=== PATIENT | female | born 1960 | race Caucasian/White ===

== ENCOUNTER 2024-01-27 09:33 | Emergency (ER) | payer MEDICARE ==
[2024-01-27] MEDS ORDERED: BENADRYL 50 MG/ML ONE (09:41)
[2024-01-27] MEDS ORDERED: solu-CORTEF 250MG ONE (09:41)
[2024-01-27] MEDS ORDERED: Pepcid 20 MG VIAL IV ONE (09:41)
[2024-01-27] MEDS ORDERED: Sodium Chloride 0.9% 1000 ML 1,000 ML ONE (09:42)
[2024-01-27 09:53] VITALS: RESP 20; TEMP 97; O2SAT 95
[2024-01-27] MEDS: Sodium Chloride 0.9% 1000 ML 1,000 ML IV STA (09:53)
[2024-01-27] MEDS: solu-CORTEF 250MG IV ONE (09:54)
[2024-01-27] MEDS: BENADRYL 50 MG/ML IV ONE (09:54)
[2024-01-27] MEDS: Pepcid 20 MG VIAL IV ONE (09:54)
[2024-01-27 10:07] LABS: Absolute Neutrophil Ct (ANC) 7.62 x10^3/uL (1.4-6.9); BASOPHIL % 0.5 % (0.0-0.4); Basophil (Absolute #) 0.06 x10^3/uL (0-0.4); Eosinophil % 3.8 % (0.00-5.0); Eosinophil (Absolute #) 0.47 x10^3/uL (0-0.5); Hematocrit 43.4 % (35-47); Hemoglobin 13.3 g/dL (12.0-16.0); IMMATURE GRAN # 0.07 x10^3u/L (0.00-0.03); IMMATURE GRAN % 0.6 % (0.00-0.4); Lymphocyte (Absolute #) 3.32 x10^3/uL (1.0-4.6); Mean Cell Volume 89.9 fL (78-100); Mean Corpuscular Hemoglobin 27.5 pg (26-32); Mean Corpuscular Hgb Concent. 30.6 g/dL (32-36); Mean Platelet Volume 9.4 fL (7.5-11.0); Monocyte (Absolute #) 0.76 x10^3/uL (0.0-1.3); Monocytes % 6.2 % (0.0-12.0); Neutrophil % 61.9 % (36.0-66.0); Platelet Count 467 x10^3/uL (150-450); Red Blood Count 4.83 x10^6/uL (4.1-5.4); Red Cell Distribution Width 14.7 % (11.5-14.0); White Blood Count 12.3 x10^3/uL (4.0-10.5)
--- NOTE | 2024-01-27 10:19 | ERPHSYRPT ---
- History of Present Illness Time Seen by Provider: 01/27/24 10:13 Source: patient Exam Limitations: no limitations Patient Subjective Stated Complaint: Allergic reaction Triage Nursing Assessment: Patient brought back to ED per w/c and transferred to bed with assist of 1. Patient A+O X3. Patient's skin pink, warm and dry. Patient states she woke up with a sore throat then noticed her tongue was swollen. Patient has swelling underneath tongue. Patient has wheezing Physician History: Patient states she woke up with a sore throat then noticed her tongue was swollen. Patient has swelling underneath tongue. Patient has wheezing No previous history of same. No fever, chills, headache, shortness of breath Timing/Duration: today Severity: moderate Associated Symptoms: denies symptoms Allergies/Adverse Reactions: No Known Drug Allergies Allergy (Verified 01/27/24 09:36) Home Medications: Metoprolol Succinate 50 mg [Toprol Xl 50 MG] 50 mg PO BID 08/30/14 [History] Potassium Chloride Tab* [Klor Con] 10 meq PO DAILY 08/30/14 [History] Bupropion HCl 150 mg Sr [Wellbutrin SR 150 MG] 1 tab PO BID 01/27/24 [History] Diclofenac Sodium 50 mg [Voltaren 50 mg] 100 mg PO DAILY 01/27/24 [History] Escitalopram Oxalate [Lexapro] 20 mg PO DAILY 01/27/24 [History] Lisinopril/Hydrochlorothiazide [Lisinopril-Hctz 20-12.5 mg Tab] 1 tab PO DAILY 01/27/24 [History] Hx Tetanus, Diphtheria Vaccination/Date Given: Yes (UNKNOWN) Hx Influenza Vaccination/Date Given: No Hx Pneumococcal Vaccination/Date Given: No Immunizations Up to Date: Yes Travel Risk - International Travel Have you traveled outside of the country in past 3 weeks: No - Coronavirus Screening Are you exhibiting any of the following symptoms?: No Close contact with a COVID-19 positive Pt in past 14-21 Days: No - Vaccine Status Have you recieved a Covid-19 vaccination: No - Review of Systems Constitutional: No Fever, No Chills Eyes: No Symptoms Ears, Nose, & Throat: No Symptoms, Throat Swelling, Other (swelling under tongue) Respiratory: Wheezing, No Cough, No Dyspnea Cardiac: No Chest Pain, No Edema, No Syncope Abdominal/Gastrointestinal: No Abdominal Pain, No Nausea, No Vomiting, No Diarrhea Genitourinary Symptoms: No Dysuria Musculoskeletal: No Back Pain, No Neck Pain Skin: No Rash Neurological: No Dizziness, No Focal Weakness, No Sensory Changes Psychological: No Symptoms Endocrine: No Symptoms All Other Systems: Reviewed and Negative - Past Medical History Pertinent Past Medical History: Yes Neurological History: No Pertinent History Cardiac History: Hypertension Musculoskeletal History: Other History: Renal Disease Psycho-Social History: Anxiety, Bipolar, Depression Other Medical History: chronic pain, Acute Renal insufficiency - Past Surgical History Past Surgical History: Yes Female Surgical History: Lumpectomy, Tubal Ligation Other Surgical History: Pt poor historian - Social History Smoking Status: Current every day smoker How long have you smoked: 30 Exposure to second hand smoke: No Drug Use: none Patient Lives Alone: Yes - Nursing Vital Signs Nursing Vital Signs: Initial Vital Signs Temperature 97.0 F 01/27/24 09:38 Pulse Rate 95 H 01/27/24 09:38 Respiratory Rate 20 01/27/24 09:38 Blood Pressure 176/97 01/27/24 09:38 O2 Sat by Pulse Oximetry 95 01/27/24 09:38 Pain Scale Pain Intensity 0 - Physical Exam General Appearance: no apparent distress, alert Eye Exam: PERRL/EOMI, eyes nml inspection Ears, Nose, Throat Exam: normal ENT inspection, TMs normal, pharynx normal, moist mucous membranes, other (swelling under tongue) Neck Exam: normal inspection, non-tender, supple, full range of motion Respiratory Exam: normal breath sounds, lungs clear, wheezing, No respiratory distress Cardiovascular Exam: regular rate/rhythm, normal heart sounds, normal peripheral pulses Gastrointestinal/Abdomen Exam: soft, normal bowel sounds, No tenderness, No mass Back Exam: normal inspection, normal range of motion, No CVA tenderness, No vertebral tenderness Extremity Exam: normal inspection, normal range of motion, pelvis stable Neurologic Exam: alert, oriented x 3, cooperative, normal mood/affect, nml cerebellar function, nml station & gait, sensation nml, No motor deficits Skin Exam: normal color, warm, dry, No rash Lymphatic Exam: No adenopathy SpO2: 95 - Course Nursing assessment & vital signs reviewed: Yes Ordered Tests: Active Orders 24 hr Category Date Time Status CBC W DIFF Stat Lab 01/27/24 10:05 Completed CMP Stat Lab 01/27/24 10:05 Completed Medication Summary Generic Name Dose Route Start Last Admin Trade Name Evette PRN Reason Stop Dose Admin Sodium Chloride 1,000 mls @ 999 mls/hr 01/27/24 09:43 01/27/24 09:53 Sodium Chloride 0.9% 1000 Ml IV 01/27/24 10:43 999 mls/hr .Q1H1M STA Administration Discontinued Medications Generic Name Dose Route Start Last Admin Trade Name Evette PRN Reason Stop Dose Admin Diphenhydramine HCl Confirm 01/27/24 09:41 Diphenhydramine Hcl 50 Mg/Ml Vial Administered 01/27/24 09:42 Dose 50 mg .ROUTE .STK-MED ONE Diphenhydramine HCl 50 mg 01/27/24 09:43 01/27/24 09:54 Diphenhydramine Hcl 50 Mg/Ml Vial IV 01/27/24 09:44 50 mg STAT ONE Administration Famotidine Confirm 01/27/24 09:41 Famotidine 20 Mg/1 Vial Administered 01/27/24 09:42 Dose 40 mg IV .STK-MED ONE Famotidine 40 mg 01/27/24 09:43 01/27/24 09:54 Famotidine 20 Mg/1 Vial IV 01/27/24 09:44 40 mg STAT ONE Administration Hydrocortisone Sodium Succinate Confirm 01/27/24 09:41 Hydrocortisone Sod Succinate 250 Mg/Vial Vial Administered 01/27/24 09:42 Dose 250 mg .ROUTE .STK-MED ONE Hydrocortisone Sodium Succinate 250 mg 01/27/24 09:46 01/27/24 09:54 Hydrocortisone Sod Succinate 250 Mg/Vial Vial IV 01/27/24 09:47 250 mg ONCE ONE Administration Sodium Chloride Confirm 01/27/24 09:42 Sodium Chloride 0.9% 1000 Ml Administered 01/27/24 09:43 Dose 1,000 mls @ ud .ROUTE .STK-MED ONE Lab/Rad Data: Laboratory Result Diagrams 01/27/24 10:05 01/27/24 10:05 Laboratory Results 01/27/24 01/27/24 Range/Units 10:05 10:05 WBC 12.3 H (4.0-10.5) x10^3/uL RBC 4.83 (4.1-5.4) x10^6/uL Hgb 13.3 (12.0-16.0) g/dL Hct 43.4 (35-47) % MCV 89.9 (78-100) fL MCH 27.5 (26-32) pg MCHC 30.6 L (32-36) g/dL RDW 14.7 H (11.5-14.0) % Plt Count 467 H (150-450) x10^3/uL MPV 9.4 (7.5-11.0) fL Gran % 61.9 (36.0-66.0) % Immature Gran % (Auto) 0.6 H (0.00-0.4) % Nucleat RBC Rel Count 0.0 (0.00-0.1) % Eos # (Auto) 0.47 (0-0.5) x10^3/uL Immature Gran # (Auto) 0.07 H (0.00-0.03) x10^3u/L Absolute Lymphs (auto) 3.32 (1.0-4.6) x10^3/uL Absolute Monos (auto) 0.76 (0.0-1.3) x10^3/uL Absolute Nucleated RBC 0.00 (0.00-0.01) x10^3u/L Lymphocytes % 27.0 (24.0-44.0) % Monocytes % 6.2 (0.0-12.0) % Eosinophils % 3.8 (0.00-5.0) % Basophils % 0.5 (0.0-0.4) % Absolute Granulocytes 7.62 H (1.4-6.9) x10^3/uL Basophils # 0.06 (0-0.4) x10^3/uL Sodium 141 (135-145) mmol/L Potassium 4.3 (3.5-5.1) mmol/L Chloride 108 H (98-107) mmol/L Carbon Dioxide 19 L (22-30) mmol/L Anion Gap 19.0 H (5-15) MEQ/L BUN 37 H (7-17) mg/dL Creatinine 0.97 (0.52-1.04) mg/dL Estimated GFR 66.1 ML/MIN Glucose 163 H (74-106) mg/dL Calcium 9.4 (8.4-10.2) mg/dL Total Bilirubin 0.30 (0.2-1.3) mg/dL AST 53 H (14-36) U/L ALT 45 H (0-35) U/L Alkaline Phosphatase 201 H (38-126) U/L Serum Total Protein 8.8 H (6.3-8.2) g/dL Albumin 4.0 (3.5-5.0) g/dL - Progress Progress: improved Progress Note: 01/27/24 10:15 Patient was given 250 mg Solu-Cortef IV, 50 mg Benadryl IV, and 40 mg Pepcid IV. Patient's symptoms almost disappeared within 30 minutes. Swelling under her tongue almost resolved. 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 We have sent an extra test on you so please follow-up with your primary care physician Discharge/Care Plan GAUDENCIOSEEMA SHAYY was seen on 01/27/24 in the Emergency Room. The patient was counseled regarding Diagnosis,Lab results, Imaging studies, need for follow up and when to return to the Emergency Room. Prescriptions given: Discharge Note I have spoken with the patient and/or caregivers. I have explained the patient's condition, diagnosis and treatment plan based on the information available to me at this time. I have answered the patient's and/or caregiver's questions and addressed any concerns. The patient and/or caregivers have as good understanding of the patient's diagnosis, condition and treatment plan as can be expected at this point. The vital signs have been stable. The patient's condition is stable and appropriate for discharge from the emergency department. The patient will pursue further outpatient evaluation with the primary care physician or other designated or consulting physician as outlined in the discharge instructions. The patient and/or caregivers are agreeable to this plan of care and follow-up instructions have been explained in detail. The patient and/or caregivers have received these instruction. The patient/and or caregivers are aware that any significant change in condition or worsening of symptoms should prompt an immediate return to this or the closest emergency department or call 911. SEEMA RATLIFF was seen on 01/27/24 n the Emergency Room. At that time you were treated for an emergent condition, during your visit Laboratory, Radiology and/or other procedures may have been ordered. It is very important that you follow-up with your Primary Care Physician KATHERINE LIRIANO within the next 24-48 hours to review your Emergency Room visit and the final results of testing that was ordered. Some test results such as Urine Cultures, Blood Cultures, and other cultures if ordered will not be finalized for 24-48 hours. If you do not have a Primary Care Provider please call the medical records department at [phone] ext [phone] to obtain a copy of your results or you may sign into our patient portal to obtain these results by visiting us @ [email or web address] and completing the following steps: 1. Click on the Patient Portal link 2. Click the Patient Self Enrollment Link to complete the enrollment form and entering your 3. Once the enrollment form is completed you will receive an email with a temporary ID and password at the email address you provided. 4. Next choose a user name and password. Your user name must be at least 4 characters long and your password must be at least 4 characters long. 5. Choose a security question from the list and provide your answer to the q uestion. If you already have signed into the Health Portal you may access your Health Care Information 12/06 by the following steps: 1. Login to our website @ [email or web address] 2. Enter your original user name and password. FAQS The [facility] Health Portal is an online tool that contains your Lab Results, Radiology Reports, Visit History, Discharge Instructions and Health Summary Lab and Radiology Results will not be available for 72 hours on the portal. The Portal is a secure site, passwords are encryted and URLs are re-written so they cannot be copied and pasted. You and authorized family members are the only ones who can access your Portal. Also there is a timeout feature that protects your information if you leave the Portal page open. If you have technical difficulty please use the Contact Us link on the page this will allow you to submit any questions you have regarding the Portal or you may contact the Medical Record Department at [phone] ext [phone].
[2024-01-27 10:20] LABS: BILIRUBIN,TOTAL 0.3 mg/dL (0.2-1.3); Calcium 9.4 mg/dL (8.4-10.2); Creatinine 1 0.97 mg/dL (0.52-1.04); EST GLOMERULAR FILTRATION RATE 66.1 ML/MIN; Potassium 4.3 mmol/L (3.5-5.1); Total Protein 8.8 g/dL (6.3-8.2)
[2024-01-27 10:53] VITALS: BP 151/93; PULSE 80
== END 2024-01-27 11:10 | disposition home or self-care (01) ==
LOC: ED 09:33
DX: T78.3XXA Angioneurotic edema, initial encounter (principal); R79.89 Other specified abnormal findings of blood chemistry; F17.200 Nicotine dependence, unspecified, uncomplicated; Z86.19 Personal history of other infectious and parasitic diseases
CPT/HCPCS: 36415; 80053; 85025; 96374; 96375; 99283; J1200; J1720

== ENCOUNTER 2024-06-20 11:46 | Emergency (ER) | payer MEDICARE, OTHER ==
[2024-06-20 11:53] VITALS: TEMP 98.1
[2024-06-20 12:53] LABS: Hematocrit 24.3 % (34.1-44.9); Mean Cell Volume 78.1 fL (79.4-94.8); Mean Corpuscular Hemoglobin 22.2 pg (25.6-32.2); Mean Corpuscular Hgb Concent. 28.4 g/dL (32.2-35.5); Mean Platelet Volume 9.2 fL (9.4-12.3); Red Blood Count 3.11 x10^6/uL (3.93-5.22); Red Cell Distribution Width 17.9 % (11.7-14.4)
[2024-06-20] MEDS ORDERED: Zofran 4 MG/2 ML VIAL ONE (12:56)
[2024-06-20] MEDS ORDERED: Sodium Chloride 0.9% 1000 ML 1,000 ML ONE ×3 (12:56→18:30)
[2024-06-20] MEDS ORDERED: PROTONIX 40 MG IV IV ONE (12:56)
[2024-06-20 12:57] LABS: ALBUMIN 2.8 g/dL (3.5-5.0); BILIRUBIN,TOTAL 0.3 mg/dL (0.2-1.3); Calcium 9.6 mg/dL (8.4-10.2); Creatinine 1 1.5 mg/dL (0.52-1.04); EST GLOMERULAR FILTRATION RATE 38.9 ML/MIN; Potassium 4.6 mmol/L (3.5-5.1)
[2024-06-20] MEDS: Zofran 4 MG/2 ML VIAL IV ONE (13:02)
[2024-06-20] MEDS: PROTONIX 40 MG IV IV ONE (13:02)
[2024-06-20] MEDS: Sodium Chloride 0.9% 1000 ML 1,000 ML IV STA (13:02)
[2024-06-20 13:25] LABS: Hemoglobin 6.9 g/dL (11.2-15.7); White Blood Count 29.3 x10^3/uL (3.98-10.04)
[2024-06-20 13:26] LABS: Platelet Count 1124 x10^3/uL (182-369)
[2024-06-20 13:27] LABS: Appearance Turbid (Clear); Bacteria Moderate /HPF (None Seen); Bilirubin Negative (Negative); Blood Moderate (Negative); Epithelial Cells Moderate /HPF (None Seen); Glucose, Urine Negative (Negative); Ketones Trace (Negative); Leukocyte Esterase Small (Negative); Nitrite Negative (Negative); Ph 5.5 (4.6-8.0); Protein,Urine Dip 100 (Negative)
[2024-06-20 13:28] LABS: ADD URINE CULTURE? ORDERED SEPARATELY (NO); Amourphous Crystal Moderate /HPF (None Seen)
--- NOTE | 2024-06-20 13:31 | ERPHSYRPT ---
- History of Present Illness Time Seen by Provider: 06/20/24 12:00 Historian: patient, family Exam Limitations: no limitations Patient Subjective Stated Complaint: Pt brought to ED by ambulance with 8/10 abdominal pain Triage Nursing Assessment: Pt brought to ED by ambulance with complaints of upper abdominal pain. 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 Patient has been having vomiting and diarrhea symptoms since 01/27/2024. What was different today is that she had vomited blood clots. Family member provides independent, additional history as the patient is a poor historian. Patient's family very states that the patient has been having diarrhea off and during the last several months. Patient has never had an upper or lower endoscopy. Patient has no known weight loss. She has epigastric and right lower quadrant abdominal pain at this time. Patient has a history of hypertension, depression, anxiety, bipolar disorder, chronic renal disease and chronic pain issues. Timing/Duration: other (Open present for 3 months) Quality: aching Abdominal Pain Onset Location: epigastric Pain Radiation: RLQ Severity of Pain-Max: moderate Severity of Pain-Current: moderate Modifying Factors: Improves With: vomiting (Blood) Associated Symptoms: diarrhea, vomiting, weakness Previous symptoms: same symptoms as today, no recent treatment Allergies/Adverse Reactions: No Known Drug Allergies Allergy (Verified 06/20/24 12:05) Home Medications: Metoprolol Succinate 50 mg [Toprol Xl 50 MG] 50 mg PO BID 08/30/14 [History] Potassium Chloride Tab* [Klor Con] 10 meq PO DAILY 08/30/14 [History] Bupropion HCl 150 mg Sr [Wellbutrin SR 150 MG] 1 tab PO BID 01/27/24 [History] Diclofenac Sodium 50 mg [Voltaren 50 mg] 100 mg PO DAILY 01/27/24 [History] Escitalopram Oxalate [Lexapro] 20 mg PO DAILY 01/27/24 [History] Hx Tetanus, Diphtheria Vaccination/Date Given: Yes (UNKNOWN) Hx Influenza Vaccination/Date Given: No Hx Pneumococcal Vaccination/Date Given: No Travel Risk - International Travel Have you traveled outside of the country in past 3 weeks: No - Emerging Infectious Disease Are you exhibiting symptoms associated with any current EIDs: No Symptoms: Abdominal Pain, Vomitting - Review of Systems Constitutional: No Symptoms Eyes: No Symptoms Ears, Nose, & Throat: No Symptoms Respiratory: No Symptoms Cardiac: No Symptoms Abdominal/Gastrointestinal: Abdominal Pain, Vomiting, Hematemesis Genitourinary Symptoms: No Symptoms Musculoskeletal: No Symptoms Skin: No Symptoms Neurological: No Symptoms Psychological: No Symptoms Endocrine: No Symptoms Hematologic/Lymphatic: No Symptoms Immunological/Allergic: No Symptoms All Other Systems: Reviewed and Negative - Past Medical History Pertinent Past Medical History: Yes Neurological History: No Pertinent History Cardiac History: Hypertension Musculoskeletal History: Other History: Renal Disease Psycho-Social History: Anxiety, Bipolar, Depression Other Medical History: chronic pain, Acute Renal insufficiency - Past Surgical History Past Surgical History: Yes Female Surgical History: Lumpectomy, Tubal Ligation Other Surgical History: Pt poor historian - Social History Smoking Status: Current every day smoker How long have you smoked: 30 Exposure to second hand smoke: No Drug Use: none Patient Lives Alone: Yes - Social Determinants of Health Will the patient participate in the screening: Yes Do you worry about a steady place to live?: No Do you have any problems with any of the following?: No known problems In the past 12 months,have you had to go without utilities?: No Transportation Issues: No Has anyone in your support network made you feel unsafe?: No Have you or anyone in your house had to go without enough: No - Nursing Vital Signs Nursing Vital Signs: Initial Vital Signs Temperature 98.1 F 06/20/24 11:47 Pulse Rate 96 H 06/20/24 11:47 Respiratory Rate 22 06/20/24 11:47 Blood Pressure 162/139 06/20/24 11:47 O2 Sat by Pulse Oximetry 98 06/20/24 11:47 Pain Scale Pain Intensity 8 - Physical Exam General Appearance: mild distress, alert, anxiety, obese Eye Exam: PERRL/EOMI, pale conjunctivae Ears, Nose, Throat Exam: normal ENT inspection, dry mucous membranes Neck Exam: normal inspection, non-tender, supple, full range of motion Respiratory Exam: normal breath sounds, airway intact, No chest tenderness, No respiratory distress Cardiovascular Exam: regular rate/rhythm, normal heart sounds, normal peripheral pulses Gastrointestinal/Abdomen Exam: soft, normal bowel sounds, tenderness Pelvic Exam: not done Rectal Exam: not done Back Exam: normal inspection, normal range of motion, No CVA tenderness, No vertebral tenderness Extremity Exam: normal inspection, normal range of motion, pelvis stable Neurologic Exam: alert, oriented x 3, cooperative, 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 nml as tested, sensation nml Skin Exam: normal color, warm, dry Lymphatic Exam: No adenopathy SpO2 Interpretation: normal SpO2: 97 O2 Delivery: Room Air - Course Nursing assessment & vital signs reviewed: Yes Ordered Tests: Active Orders 24 hr Category Date Time Status Cath for Specimen-Straight STAT Care 06/20/24 12:46 Active IV Insertion STAT Care 06/20/24 12:46 Active IV Insertion-2nd Peripheral STAT Care 06/20/24 13:33 Active POCT Glucose Check STAT Care 06/20/24 16:15 Active ABDOMEN AND PELVIS W/0 CONTRAS [CT] Stat Exams 06/20/24 12:46 Completed AMYLASE Stat Lab 06/20/24 12:30 Completed BLOOD CULTURE Stat Lab 06/20/24 13:30 Received CBC W DIFF Stat Lab 06/20/24 12:30 Results CMP Stat Lab 06/20/24 12:30 Completed CULTURE,URINE Stat Lab 06/20/24 12:55 Received LIPASE Stat Lab 06/20/24 12:30 Completed Lactic Acid Stat Lab 06/20/24 13:00 Completed Lactic Acid Stat Lab 06/20/24 15:02 Completed Manual Differential NC Stat Lab 06/20/24 12:30 Results POCT GLUCOSE Stat Lab 06/20/24 16:51 Completed Pathologist Review Stat Lab 06/20/24 12:30 Results UA W/RFX UR CULTURE Stat Lab 06/20/24 12:55 Completed Medication Summary Generic Name Dose Route Start Last Admin Trade Name Freq PRN Reason Stop Dose Admin Sodium Chloride 1,000 mls @ 100 mls/hr 06/20/24 15:15 06/20/24 15:04 Sodium Chloride 0.9% 1000 Ml IV 07/20/24 15:14 100 mls/hr .Q10H SHERINE Administration Discontinued Medications Generic Name Dose Route Start Last Admin Trade Name Evette PRN Reason Stop Dose Admin Dextrose 50 ml 06/20/24 16:10 06/20/24 16:11 Dextrose 50%-Water 50 Ml Abboject IV 06/20/24 16:11 50 ml STAT ONE Administration Dextrose Confirm 06/20/24 16:11 Dextrose 50%-Water 50 Ml Abboject Administered 06/20/24 16:12 Dose 50 ml IV .STK-MED ONE Sodium Chloride 1,000 mls @ 999 mls/hr 06/20/24 12:45 06/20/24 14:03 Sodium Chloride 0.9% 1000 Ml IV 06/20/24 13:45 Infused .Q1H1M STA Infusion Sodium Chloride Confirm 06/20/24 12:56 Sodium Chloride 0.9% 1000 Ml Administered 06/20/24 12:57 Dose 1,000 mls @ ud .ROUTE .STK-MED ONE Meropenem 1 gm/ Sodium 100 mls @ 200 mls/hr 06/20/24 13:35 06/20/24 13:47 Chloride IV 06/20/24 14:04 200 mls/hr STAT ONE Administration Lactated Ringer's 1,000 mls @ 999 mls/hr 06/20/24 13:35 06/20/24 14:48 Lactated Ringers IV 06/20/24 14:35 Infused .Q1H1M ONE Infusion Sodium Chloride Confirm 06/20/24 13:44 Sodium Chloride 100ml Mini-Bag Plus Administered 06/20/24 13:45 Dose 100 mls @ ud IV .STK-MED ONE Lactated Ringer's Confirm 06/20/24 13:44 Lactated Ringers Administered 06/20/24 13:45 Dose 1,000 mls @ ud IV .STK-MED ONE Lorazepam 0.5 mg 06/20/24 17:49 Lorazepam 2 Mg/1 Ml 2 Mg Vial IV 06/20/24 17:50 STAT ONE Lorazepam Confirm 06/20/24 17:55 Lorazepam 2 Mg/1 Ml 2 Mg Vial Administered 06/20/24 17:56 Dose 2 mg .ROUTE .STK-MED ONE Meropenem Confirm 06/20/24 13:43 Meropenem 1 Gm Vial Administered 06/20/24 13:44 Dose 1 gm IV .STK-MED ONE Ondansetron HCl 4 mg 06/20/24 12:45 06/20/24 13:02 Ondansetron Hcl 4 Mg/2 Ml Vial IV 06/20/24 12:46 4 mg STAT ONE Administration Ondansetron HCl Confirm 06/20/24 12:56 Ondansetron Hcl 4 Mg/2 Ml Vial Administered 06/20/24 12:57 Dose 4 mg .ROUTE .STK-MED ONE Pantoprazole Sodium 40 mg 06/20/24 12:45 06/20/24 13:02 Pantoprazole 40 Mg Vial IV 06/20/24 12:46 40 mg STAT ONE Administration Pantoprazole Sodium Confirm 06/20/24 12:56 Pantoprazole 40 Mg Vial Administered 06/20/24 12:57 Dose 40 mg IV .STK-MED ONE Lab/Rad Data: Laboratory Result Diagrams 06/20/24 12:30 06/20/24 12:30 Laboratory Results 06/20/24 06/20/24 06/20/24 Range/Units 16:51 15:02 13:30 WBC (3.98-10.04) x10^3/uL RBC (3.93-5.22) x10^6/uL Hgb (11.2-15.7) g/dL Hct (34.1-44.9) % MCV (79.4-94.8) fL MCH (25.6-32.2) pg MCHC (32.2-35.5) g/dL RDW (11.7-14.4) % Plt Count (182-369) x10^3/uL MPV (9.4-12.3) fL Segmented Neutrophils (1.56-6.13) % Band Neutrophils (0.0-2.0) % Lymphocytes (Manual) (24-44) % Monocytes (Manual) (0.0-12.0) % Hypochromia Platelet Estimate (NORMAL) RBC Morphology Polychromasia Anisocytosis Smear Path Review Sodium (135-145) mmol/L Potassium (3.5-5.1) mmol/L Chloride (98-107) mmol/L Carbon Dioxide (22-30) mmol/L Anion Gap (5-15) MEQ/L BUN (7-17) mg/dL Creatinine (0.52-1.04) mg/dL Estimated GFR ML/MIN Glucose (74-106) mg/dL POC Glucometer 118 H (74 to 106) mg/dL Lactic Acid 4.0 H (0.4-2.0) Calcium (8.4-10.2) mg/dL Total Bilirubin (0.2-1.3) mg/dL AST (14-36) U/L ALT (0-35) U/L Alkaline Phosphatase (38-126) U/L Serum Total Protein (6.3-8.2) g/dL Albumin (3.5-5.0) g/dL Amylase (30-110) U/L Lipase (23-300) U/L Urine Color (Yellow) Urine Appearance (Clear) Urine pH (4.6-8.0) Ur Specific Dubois (1.005-1.030) Urine Protein (Negative) Urine Glucose (UA) (Negative) mg/dL Urine Ketones (Negative) Urine Blood (Negative) Urine Nitrite (Negative) Urine Bilirubin (Negative) Urine Urobilinogen (0.2) mg/dL Ur Leukocyte Esterase (Negative) U Hyaline Cast (Auto) (0-2) /LPF Urine Microscopic RBC (0-5) /HPF Urine Microscopic WBC (0-5) /HPF Ur Epithelial Cells (None Seen) /HPF Amorphous Crystals (None Seen) /HPF Urine Bacteria (None Seen) /HPF Urine Culture Reflexed (NO) ABO Group A Rh Factor POSITIVE Antibody Screen NEGATIVE (NEGATIVE) Crossmatch COMPATIBLE (COMPATIBLE) 06/20/24 06/20/24 06/20/24 Range/Units 13:30 13:00 12:55 WBC (3.98-10.04) x10^3/uL RBC (3.93-5.22) x10^6/uL Hgb (11.2-15.7) g/dL Hct (34.1-44.9) % MCV (79.4-94.8) fL MCH (25.6-32.2) pg MCHC (32.2-35.5) g/dL RDW (11.7-14.4) % Plt Count (182-369) x10^3/uL MPV (9.4-12.3) fL Segmented Neutrophils (1.56-6.13) % Band Neutrophils (0.0-2.0) % Lymphocytes (Manual) (24-44) % Monocytes (Manual) (0.0-12.0) % Hypochromia Platelet Estimate (NORMAL) RBC Morphology Polychromasia Anisocytosis Smear Path Review Sodium (135-145) mmol/L Potassium (3.5-5.1) mmol/L Chloride (98-107) mmol/L Carbon Dioxide (22-30) mmol/L Anion Gap (5-15) MEQ/L BUN (7-17) mg/dL Creatinine (0.52-1.04) mg/dL Estimated GFR ML/MIN Glucose (74-106) mg/dL POC Glucometer (74 to 106) mg/dL Lactic Acid 8.4 H (0.4-2.0) Calcium (8.4-10.2) mg/dL Total Bilirubin (0.2-1.3) mg/dL AST (14-36) U/L ALT (0-35) U/L Alkaline Phosphatase (38-126) U/L Serum Total Protein (6.3-8.2) g/dL Albumin (3.5-5.0) g/dL Amylase (30-110) U/L Lipase (23-300) U/L Urine Color Dark Yellow A (Yellow) Urine Appearance Turbid A (Clear) Urine pH 5.5 (4.6-8.0) Ur Specific Dubois 1.020 (1.005-1.030) Urine Protein 100 A (Negative) Urine Glucose (UA) Negative (Negative) mg/dL Urine Ketones Trace A (Negative) Urine Blood Moderate A (Negative) Urine Nitrite Negative (Negative) Urine Bilirubin Negative (Negative) Urine Urobilinogen 1.0 A (0.2) mg/dL Ur Leukocyte Esterase Small A (Negative) U Hyaline Cast (Auto) 11-20 (0-2) /LPF Urine Microscopic RBC 3-5 (0-5) /HPF Urine Microscopic WBC 3-5 (0-5) /HPF Ur Epithelial Cells Moderate A (None Seen) /HPF Amorphous Crystals Moderate A (None Seen) /HPF Urine Bacteria Moderate A (None Seen) /HPF Urine Culture Reflexed ORDERED SEPARATELY (NO) ABO Group Rh Factor Antibody Screen (NEGATIVE) Crossmatch COMPATIBLE (COMPATIBLE) 06/20/24 06/20/24 Range/Units 12:30 12:30 WBC 29.3 H* (3.98-10.04) x10^3/uL RBC 3.11 L (3.93-5.22) x10^6/uL Hgb 6.9 L* (11.2-15.7) g/dL Hct 24.3 L (34.1-44.9) % MCV 78.1 L (79.4-94.8) fL MCH 22.2 L (25.6-32.2) pg MCHC 28.4 L (32.2-35.5) g/dL RDW 17.9 H (11.7-14.4) % Plt Count 1124 H* (182-369) x10^3/uL MPV 9.2 L (9.4-12.3) fL Segmented Neutrophils 88 H (1.56-6.13) % Band Neutrophils 1 (0.0-2.0) % Lymphocytes (Manual) 9 L (24-44) % Monocytes (Manual) 2 (0.0-12.0) % Hypochromia 1+ Platelet Estimate INCREASED (NORMAL) RBC Morphology ABNORMAL Polychromasia 1+ Anisocytosis 2+ Smear Path Review Pending Sodium 136 (135-145) mmol/L Potassium 4.6 (3.5-5.1) mmol/L Chloride 97 L (98-107) mmol/L Carbon Dioxide 24 (22-30) mmol/L Anion Gap 19.0 H (5-15) MEQ/L BUN 36 H (7-17) mg/dL Creatinine 1.50 H (0.52-1.04) mg/dL Estimated GFR 38.9 ML/MIN Glucose 199 H (74-106) mg/dL POC Glucometer (74 to 106) mg/dL Lactic Acid (0.4-2.0) Calcium 9.6 (8.4-10.2) mg/dL Total Bilirubin 0.30 (0.2-1.3) mg/dL AST 45 H (14-36) U/L ALT 36 H (0-35) U/L Alkaline Phosphatase 389 H (38-126) U/L Serum Total Protein 7.0 (6.3-8.2) g/dL Albumin 2.8 L (3.5-5.0) g/dL Amylase 56 (30-110) U/L Lipase 284 (23-300) U/L Urine Color (Yellow) Urine Appearance (Clear) Urine pH (4.6-8.0) Ur Specific Dubois (1.005-1.030) Urine Protein (Negative) Urine Glucose (UA) (Negative) mg/dL Urine Ketones (Negative) Urine Blood (Negative) Urine Nitrite (Negative) Urine Bilirubin (Negative) Urine Urobilinogen (0.2) mg/dL Ur Leukocyte Esterase (Negative) U Hyaline Cast (Auto) (0-2) /LPF Urine Microscopic RBC (0-5) /HPF Urine Microscopic WBC (0-5) /HPF Ur Epithelial Cells (None Seen) /HPF Amorphous Crystals (None Seen) /HPF Urine Bacteria (None Seen) /HPF Urine Culture Reflexed (NO) ABO Group Rh Factor Antibody Screen (NEGATIVE) Crossmatch (COMPATIBLE) - Progress Progress: improved, pain not gone completely, re-examined Progress Note: 06/20/24 13:43 My medical decision making and the assignment of moderate to high complexity of this patient's medical issue today is based on review of the patient's past medical history, review of the patient's medication list, review of patient drug allergy list, history present illness and physical findings on examination. The workup in this patient includes placement of intravenous line, infusion of normal saline solution, infusion of Protonix, infusion of Zofran. We need to hold off on providing this patient narcotics as she is hypotensive. There is been no active bleeding from lungs, stomach or anus at this time. We also ordered CBC, CMP, lactic acid level, urinalysis, amylase and lipase level as well as a CT scan of the abdomen pelvis without contrast. Differential diagnosis includes but is not limited to bowel ischemia, pancreatitis, cholecystitis, appendicitis, bowel obstruction 06/20/24 14:54 I interpreted the patient's laboratory data results. Patient has a significant leukocytosis with a left shift, anemia with a hemoglobin of 6.9 and thrombocytosis with platelet count of 1124. Patient also has an elevated lactic acid level of 8.4. CT scan of the abdomen pelvis without contrast was interpreted by the radiologist and I reviewed the impression. Impression states abnormally distended gallbladder with 4.2 cm gallstone present. There is multiple mid abdominal mesenteric nodes with stranding, favoring mesenteric adenitis. The noncontrasted stomach and bowel loops appear normal and nonobstructed. There is normal appendix. There is no free air and no free fluid. 06/20/24 18:00 We attempted to transfer this patient several different x 2 different facilities. We spoke with Dr. Kam Pardo, our general surgeon on-call at this time. He felt that the patient, given her BMI of 55 would require a much longer upper endoscopy and colonoscopy apparatus. They are available from the general surgery standpoint. However they feel that it is important for the patient to undergo a gastroenterology evaluation. We do not have gastroenterology here at our facility. We contacted [facility] and they do not have gastroenterology services. We contacted [facility] and there are no beds available. We then contacted [facility] in [facility] and there are no beds available. We contacted [facility] and they initially did not call us back. While we were waiting for them to call back we contacted [facility]. Dr. Rico, the hospitalist on did call back and we discussed this patient in detail. The [facility] stated that there were no beds at this time and availability might be 2 to 3 days. We were placed on a wait list. We then put a call into [facility] and awaiting their call back as well. In the interim, [facility] transfer center called and stated that Dr. Leopoldo Rojas will be the excepting emergency room physician in a emergency room to emergency room transfer. The number given to me for nurse transfer report was [phone] extension [phone]. I told the nurses to contact the transfer center and make them aware of the estimated time of arrival this patient to the emergency department. The transfer center from [facility] in [facility] called back. We declined the transfer since the patient has already been accepted to [facility]. Counseled pt/family regarding: lab results, diagnosis, rad results Medical Desision Making - Independent Historian Additional History obtained from: Family - Diagnostic Testing Diagnostic test were ordered, analyzed, and reviewed by me: Yes Radiological Interpretation: Reviewed by me, Teleradiologist Report - Risk of complications The pt has a high risk of morbidity or mortality based on: Decision regarding hospitilization or escalation of hosp level of care - Departure Departure Disposition: Transfer Clinical Impression: Anemia, Hematemesis, Right sided abdominal pain, Leukocytosis, Lactic acidemia, Hypotension, Cholelithiasis Condition: Fair Critical Care Time: Yes Critical Care Time(excluding separately billable procedures): Critical 30-74 mins (50) Referrals: KATHERINE LIRIANO NP [Primary Care Provider] - Follow up/PCP as directed
[2024-06-20] MEDS ORDERED: Merrem IV ONE (13:43)
[2024-06-20] MEDS ORDERED: Lactated Ringers 1,000 ML IV ONE (13:44)
[2024-06-20] MEDS ORDERED: Sodium Chloride 100ML MINI-BAG PLUS 100 ML IV ONE (13:44)
[2024-06-20] MEDS: Merrem 1 GM in Sodium Chloride 100ML MINI-BAG PLUS 100 ML IV ONE (13:47)
[2024-06-20] MEDS: Lactated Ringers 1,000 ML IV ONE (13:47)
--- NOTE | 2024-06-20 14:41 | XRAY ---
Indication: Abdominal pain 3 months. Nausea and vomiting. Contiguous axial images obtained through the abdomen and pelvis without contrast. Comparison: None Lung bases demonstrates minimal scattered fibrosis/scarring and tiny right lung calcified granulomas. Heart not enlarged. Tiny/small right infrahilar calcified nodes. Stomach is distended with food/fluid. Gallbladder abnormally distended distended with 4.2 cm gallstone. Noncontrasted stomach and bowel loops appear nonobstructed with normal appendix. No free fluid/air. There are multiple mid abdomen mesenteric nodes largest 2.4 x 1.4 cm with stranding favoring mesenteric adenitis. Incidental 25.7 cm fatty hepatomegaly and splenic calcified granulomas. Remaining pancreas, adrenal glands, kidneys, ureters, bladder, and uterus are unremarkable for noncontrast exam. Minimal scattered aortoiliac calcifications without AAA. Osseous structures intact with minimal/mild degenerative changes throughout thoracolumbar spine and moderate levorotoscoliosis centered at thoracolumbar junction. Impression: 1. Abnormally distended gallbladder in this postprandial patient. 4.2 cm gallstone. Sonogram may yield further information if clinically warranted. 2. Multiple mid abdomen mesenteric nodes with stranding favoring mesenteric adenitis. 3. Chronic findings including fatty hepatomegaly, arteriosclerotic disease, chronic bony findings, and old granulomatous disease.
[2024-06-20 15:00] LABS: ABO TYPING A; Antibody Screen NEGATIVE (NEGATIVE); RH TYPING POSITIVE
[2024-06-20 15:01] LABS: CROSS MATCH (PRBC) COMPATIBLE (COMPATIBLE)
[2024-06-20 15:02] LABS: CROSS MATCH (PRBC) COMPATIBLE (COMPATIBLE)
[2024-06-20] MEDS: Sodium Chloride 0.9% 1000 ML 1,000 ML IV SCH ×2 (15:04→18:31)
[2024-06-20 15:34] LABS: ANISOCYTOSIS 2+; BAND 1 % (0.0-2.0); Hypochromia 1+; Lymphocytes 9 % (24-44); Monocyte 2 % (0.0-12.0); Neutrophils 88 % (1.56-6.13); Platelet Estimate INCREASED (NORMAL); Polychromasia 1+; Total Cells Counted 100
[2024-06-20] MEDS: D50W 50 ml Abboject IV ONE (16:11)
[2024-06-20] MEDS ORDERED: D50W 50 ml Abboject IV ONE (16:11)
[2024-06-20] MEDS ORDERED: Ativan 2 MG/1 ML VIAL ONE (17:55)
[2024-06-20] MEDS: Ativan 2 MG/1 ML VIAL IV ONE (17:58)
[2024-06-20 18:06] VITALS: PULSE 80; O2SAT 97
[2024-06-20 19:37] VITALS: BP 119/77; RESP 24
== END 2024-06-20 19:15 | disposition short-term general hospital (02) ==
LOC: ED 11:46
DX: D64.9 Anemia, unspecified (principal); K92.0 Hematemesis; R10.11 Right upper quadrant pain; R10.31 Right lower quadrant pain; D72.829 Elevated white blood cell count, unspecified; E87.20 Acidosis, unspecified; I95.9 Hypotension, unspecified; K80.20 Calculus of gallbladder without cholecystitis without obstruction; I12.9 Hypertensive chronic kidney disease with stage 1 through stage 4 chronic kidney disease, or unspecified chronic kidney disease; N18.9 Chronic kidney disease, unspecified; Z79.899 Other long term (current) drug therapy; Z72.0 Tobacco use
CPT/HCPCS: 36000; 36415; 36430; 74176; 80053; 81001; 82150; 82947; 83605; 83690; 85025; 86850; 86900; 86901; 86922; 87040; 87086; 96365; 96374; 96375; 99285; 99291; P9016; P9612; J2060; J2405